=== PATIENT | male | born 1970 | race African-American/Black ===

== ENCOUNTER 2018-06-30 07:01 | Day surgery (SDC) | payer OTHER ==
[~2018-06-30] VITALS: Ht 195.6 cm; Wt 142.9 kg
[2018-06-30] VITALS (12 sets, daily range): BP systolic 102–122; BP diastolic 63–78
[~2018-06-30 07:01] MED LIST: ceFAZolin 1gm in D5W 55ml IVP ONE; celeBREX 200mg Cap **SURGERY PATIENTS ONLY ORAL ONE; oxyCONTIN 20mg tab ORAL ONE
--- NOTE | 2018-06-30 07:09 | Operative Note - PDOC ---
Operative Note Operative Note Pre-op Diagnosis: left knee medial meniscus tear Procedure: see op report Post-op Diagnosis: same as pre-op plus Operative Findings: consistent w/pre-op dx studies Anesthesia: MAC Specimen: none Complications: none Condition: stable Estimated Blood Loss: none Implant(s) used?: No Luis Galdamez MD Jun 30, 2018 07:09
--- NOTE | 2018-06-30 07:09 | Pre-Procedure Note/Attestation ---
Pre-Procedure Note/Attestation Complete Prior to Procedure Planned Procedure: left Procedure Narrative: knee arthroscopy, medial menisectomy Indications for Procedure Pre-Operative Diagnosis: left knee medial meniscus tear Attestation I attest that I discussed the nature of the procedure; its benefits; risks and complications; and alternatives (and the risks and benefits of such alternatives ), prior to the procedure, with the patient (or the patient's legal inside account representative). I attest that, if there was a reasonable possibility of needing a blood transfusion, the patient (or the patient's legal inside account representative) was given the [facility] standardized written summary, pursuant to the [place] Blood Safety Act ([place] Health and Safety Code # 1645, as amended). I attest that I re-evaluated the patient just prior to the surgery and that there has been no change in the patient's H&P, except as documented below: Luis Galdamez MD Jun 30, 2018 07:09
[2018-06-30] MEDS ORDERED: Tylenol #3 tab (300mg/30mg) ORAL PRN (07:15)
[2018-06-30] MEDS ORDERED: Norco 5mg/325mg tab ORAL PRN (07:15)
[2018-06-30] MEDS ORDERED: HYDROmorphone 1mg/ml Carpuject SUBQ PRN (07:15)
[2018-06-30] MEDS ORDERED: D5 1/2NS 1,000 ML IV SCH (07:15)
[2018-06-30] MEDS ORDERED: MULTIVITAMINS1 EAC2 ORAL (08:11)
[2018-06-30] MEDS ORDERED: oxyCONTIN 20mg tab ORAL ONE (08:12)
[2018-06-30] MEDS ORDERED: celeBREX 200mg Cap **SURGERY PATIENTS ONLY ORAL ONE (08:12)
[2018-06-30] MEDS ORDERED: Lidocaine 1% 10mg/ml/Epi 0.005mg/ml 30ml vial INJ ONE (08:55)
[2018-06-30] MEDS ORDERED: EPINEPHrine 1mg/1ml Amp ONE (08:55)
[2018-06-30] MEDS ORDERED: Ketorolac 30mg Inj ONE ×2 (08:55→09:32)
[2018-06-30] MEDS ORDERED: Kenalog-40 1ml Vial ONE (08:55)
[2018-06-30] MEDS ORDERED: Morphine Sulfate PF 10 ML ONE (08:55)
[2018-06-30] MEDS ORDERED: Midazolam 2mg/2ml Inj ONE (08:57)
[2018-06-30] MEDS ORDERED: fentaNYL 100 mcg/2 mL IV ONE (08:57)
[2018-06-30] MEDS ORDERED: Sterile Water For Irrig 2000ml IRRIG ONE (09:00)
[2018-06-30] MEDS ORDERED: LR 1000ml ONE (09:00)
[2018-06-30] MEDS ORDERED: NS Irrig 4000ml IRRIG ONE (09:00)
[2018-06-30] MEDS: Bupivacaine 0.5% Inj 30 ml vial INJ ONE ×2 (09:10→09:12)
[2018-06-30] MEDS ORDERED: fentaNYL 100 mcg/2 mL IV PRN (09:30)
--- NOTE | 2018-06-30 09:30 | Anethesia Preoperative Eval ---
Anesthesia Pre-op PMH/ROS General Date of Evaluation: Jun 30, 2018 Time of Evaluation: 09:00 Anesthesiologist: kristin ASA Score: ASA 2 Mallampati Score Class I : Soft palate, uvula, fauces, pillars visible Class II: Soft palate, uvula, fauces visible Class III: Soft palate, base of uvula visible Class IV: Only hard plate visible Mallampati Classification: Class III Surgeon: dominic Diagnosis: meniscus tear Surgical Procedure: left knee arthroscopy Anesthesia History: none Family History: no anesthesia problems Allergies: Coded Allergies: No Known Allergies (Unverified , 06/29/18) Medications: see eMAR Past Medical History Cardiovascular: Denies: HTN, CAD, [place], valve dz, arrhythmia, other Pulmonary: Denies: asthma, COPD, AVINASH, other Gastrointestinal/Genitourinary: Reports: GERD; Denies: CRI, ESRD, other Neurologic/Psychiatric: Denies: dementia, CVA, depression/anxiety, TIA, other Endocrine: Denies: DM, hypothyroidism, steroids, other HEENT: Denies: cataract (L), cataract (R), glaucoma, NOME (L), NOME (R), other Hematology/Immune: Denies: anemia, DVT, bleeding disorder, other Musculoskeletal/Integumentary: Denies: OA, RA, DJD, DDD, edema, other PSxH Narrative: gastric sleeve Anesthesia Pre-op Phys. Exam Physician Exam Last Vital Signs Date Time Temp Pulse Resp B/P (MAP) Pulse Ox O2 Delivery O2 Flow Rate FiO2 06/30/18 08:18 Room Air 06/30/18 08:04 98.0 96 18 111/70 (84) 96 98.0 Constitutional: NAD Neurologic: CN 2-12 intact Cardiovascular: RRR Respiratory: CTA Gastrointestinal: S/NT/ND Airway Exam Mallampati Classification 3 Mallampati Score: Class II MO: full Neck: normal TMD: 3fb ROM: full Dentures: no upper, no lower Anesthesia Pre-op A/P Studies Pre-op Studies: EKG - sr Risk Assessment & Plan Plan: general LMA Status Change Before Surgery: No Pre-Antibiotics Drug: ancef Given Within 1 Hr of Incision: Yes Time Given: 09:05 Mei Farmer CRNA Jun 30, 2018 09:30
[2018-06-30] MEDS ORDERED: Propofol 200mg/20ml IV ONE (09:32)
[2018-06-30] MEDS ORDERED: Lidocaine 1% MPF 10mg/ml 5ml ONE (09:32)
--- NOTE | 2018-06-30 10:03 | Immediate Post-Op Evaluation ---
Immediate Post-Op Evalulation Immediate Post-Op Evalulation Procedure: left knee arthroscopy Date of Evaluation: Jun 30, 2018 Time of Evaluation: 10:03 Blood Pressure Systolic: 119 Blood Pressure Diastolic: 70 Pulse Rate: 83 Respiratory Rate: 14 O2 Sat by Pulse Oximetry: 100 Temperature (Fahrenheit): 98.5 Nausea: No Vomiting: No Complications none Patient Status: awake, reacts, patent Drug: ancef Given Within 1 Hr of Incision: Yes Time Given: 10:00 Mei Farmer CRNA Jun 30, 2018 10:03
--- NOTE | 2018-06-30 13:17 | 48 Hour Post Anesthesia Eval ---
Post Anesthesia Evaluation Procedure: left knee arthroscopy Date of Evaluation: Jun 30, 2018 Time of Evaluation: 13:16 Blood Pressure Systolic: 121 0: 70 Pulse Rate: 51 Respiratory Rate: 14 O2 Sat by Pulse Oximetry: 99 Airway: patent Nausea: No Vomiting: No Hydration Status: adequate Cardiopulmonary Status: stable Mental Status/LOC: patient returned to baseline Follow-up Care/Observations: na Post-Anesthesia Complications: none Follow-up care needed: N/A Mei Farmer CRNA Jun 30, 2018 13:17
--- NOTE | 2018-06-30 22:00 | Operative Note - Dictated ---
DATE OF OPERATION: 06/30/2018 PREOPERATIVE DIAGNOSES: 1. Left knee medial meniscus tear. 2. Grade 3 chondral damage, medial femoral condyle. 3. Hypertrophic synovial tissues/fat pad medial lateral patellofemoral compartment. PROCEDURE: 1. Left knee arthroscopic medial meniscectomy. 2. Synovectomy/excision hypertrophic fat pad medial lateral patellofemoral compartment. 3. Gentle chondroplasty, medial patellofemoral compartment. SURGEON: Luis Galdamez M.D. ANESTHESIA: MAC. INDICATION FOR THE PROCEDURE: Progressive left knee pain. He had MRI, which showed a meniscal tear along with some chondral damage. Given that he failed conservative treatment and elected to undergo left knee arthroscopy, partial medial meniscectomy. Risks, limitations, expectations, and complications of the procedure were discussed in detail including continued pain, need for future surgery, risk of anesthesia, medical complications, DVT, PE, and mortality risk. He also understood the arthroscopic procedure may improve some chondral damage, but symptoms afterwards. DESCRIPTION OF PROCEDURE: After informed consent was obtained, the patient was brought to the operating room. The patient was placed under general anesthesia. His left leg was prepped and draped in a sterile manner. Time-out was performed. Portal sites were injected with lidocaine with epinephrine and a 0.25% Marcaine with epinephrine. Esmarch was used to exsanguinate the extremity. Inferolateral stab incision was then made. Trocar was introduced into the knee joint. There was hypertrophic synovial tissue in fat pad making the position of patellofemoral compartment difficult, medial compartment was entered. Medial working portal was established. Synovectomy, excision of the fat pad and along the medial intercondylar notch lateral compartment was performed. Medial compartment was entered. There was a tear of the posterior horn medial meniscus. Partial meniscectomy initially was performed. Gentle chondroplasty grade 3 chondral damage of the femoral condyle was also performed. ACL was probed, noted to be intact. Lateral compartment was entered. There was some fraying along the portion of the tibial insertion of the ACL, which was debrided. The lateral meniscus was intact. The camera was placed in the patellofemoral compartment. Synovectomy was completed. There was grade 3 chondral damage in the trochlear groove. Instruments were removed. Portal sites were closed with 3-0 Monocryl sutures. injection was administered. The patient was awoken and taken to recovery room with stable vital signs. ESTIMATED BLOOD LOSS: None. COMPLICATIONS: None. SPECIMENS: None. IMPLANTS: None. Luis Galdamez M.D. DR: ELIDA JOB#: [id number] CC:
== END 2018-06-30 11:45 | disposition home or self-care (01) ==
LOC: SUR 07:01
DX: M23.222 Derangement of posterior horn of medial meniscus due to old tear or injury, left knee (principal); M67.262 Synovial hypertrophy, not elsewhere classified, left lower leg; M94.9 Disorder of cartilage, unspecified; K21.9 Gastro-esophageal reflux disease without esophagitis; Z98.84 Bariatric surgery status
CPT/HCPCS: 29876; 29881; J0171; J0690; J1885; J2250; J2274; J2405; J2704; J3010; J3301; J3490; J7120; 94003; 94150